=== PATIENT | male | born 1995 | race American Indian/Alaskan Native ===

== ENCOUNTER 2019-07-19 01:18 | Emergency (ER) | payer SELFPAY ==
[2019-07-19] MEDS ORDERED: IBUPROFEN 800 MG TAB ONE (01:49)
[2019-07-19] MEDS ORDERED: IBUPROFEN 800 MG TAB PO ONE (01:52)
--- NOTE | 2019-07-19 02:19 | XRay Report ---
RIGHT FOOT 3 VIEWS INDICATION: right foot pain. COMPARISON: No relevant prior imaging study available. FINDINGS: No acute fracture or dislocation is seen. No soft tissue swelling. No foreign bodies. IMPRESSION: 1. No acute findings. Signer Name: Shemar Reilly MD Signed: 07/19/2019 2:15 AM Workstation Name: [id number]
--- NOTE | 2019-07-19 04:11 | Emergency Department Report ---
ED General Adult HPI - General Chief complaint: Extremity Injury, Lower Stated complaint: RIGHT FOOT PAIN Time Seen by Provider: 07/19/19 04:06 Source: patient, EMS Mode of arrival: Wheelchair Limitations: No Limitations - History of Present Illness Initial comments: 24-year-old -[place] male complains of right foot pain after twisting his foot while walking x tonight. He rates his pain as a 10/10 in severity and states it is difficult for him to ambulate. He denies any swelling or bruising. -: Sudden Severity scale (0 -10): 10 Quality: aching, sharp Consistency: constant Improves with: immobilization Worsens with: movement, other (walking) Associated Symptoms: denies other symptoms - Related Data Previous Rx's Medication Instructions Recorded Last Taken Type Ibuprofen [Motrin 800 MG tab] 800 mg PO Q8HR PRN #21 tablet 07/19/19 Unknown Rx Allergies Allergy/AdvReac Type Severity Reaction Status Date / Time No Known Allergies Allergy Verified 07/19/19 01:34 ED Review of Systems ROS: Stated complaint: RIGHT FOOT PAIN Other details as noted in HPI Musculoskeletal: as per HPI. denies: joint swelling Skin: denies: rash, lesions ED Past Medical Hx - Past Medical History Previous Medical History?: No - Surgical History Past Surgical History?: No - Social History Smoking Status: Current Every Day Smoker Substance Use Type: Marijuana - Medications Home Medications: Home Medications Medication Instructions Recorded Confirmed Last Taken Type Ibuprofen [Motrin 800 MG tab] 800 mg PO Q8HR PRN #21 tablet 07/19/19 Unknown Rx ED Physical Exam - General Limitations: No Limitations General appearance: alert, in no apparent distress - Head Head exam: Present: atraumatic, normocephalic - Eye Eye exam: Present: normal appearance - Neck Neck exam: Present: full ROM - Respiratory Respiratory exam: Absent: respiratory distress - Cardiovascular Cardiovascular Exam: Present: regular rate - Expanded Lower Extremity Exam Right Foot/Toe exam: Present: full ROM, tenderness. Absent: swelling, abrasion, ecchymosis, deformity, erythema 1 - Tenderness to palpation - Neurological Exam Neurological exam: Present: alert, oriented X3 - Psychiatric Psychiatric exam: Present: normal affect, normal mood - Skin Skin exam: Present: warm, dry, intact, normal color. Absent: rash ED Course Vital Signs 07/19/19 01:36 Temperature 97.9 F Pulse Rate 68 Respiratory 18 Rate Blood Pressure 136/90 O2 Sat by Pulse 97 Oximetry ED Medical Decision Making - Radiology Data Radiology results: report reviewed RIGHT FOOT 3 VIEWS INDICATION: right foot pain. COMPARISON: No relevant prior imaging study available. FINDINGS: No acute fracture or dislocation is seen. No soft tissue swelling. No foreign bodies. IMPRESSION: 1. No acute findings. - Medical Decision Making 24-year-old -[place] male complains of right foot pain after twisting his foot while walking x tonight. X-ray is negative for fracture. Patient is nontoxic appearing and stable for discharge home. Crutches provided. Ankle wrapped in Jovany wrap. Patient to follow-up with operations systems specialist for further evaluation and treatment. Discussed strict return precautions in detail with patient who verbalizes understanding. Critical care attestation.: If time is entered above; I have spent that time in minutes in the direct care of this critically ill patient, excluding procedure time. ED Disposition Clinical Impression: Foot sprain Qualifiers: Encounter type: initial encounter Laterality: right Qualified Code(s): S93.601A - Unspecified sprain of right foot, initial encounter Disposition: TO HOME OR SELFCARE Is pt being admited?: No Condition: Stable Instructions: Foot Sprain (ED) Prescriptions: Ibuprofen [Motrin 800 MG tab] 800 mg PO Q8HR PRN #21 tablet PRN Reason: pain Referrals: GIA CHEATHAM MD [Staff Physician] - 3-5 Days
[2019-07-19 04:41] VITALS: BP 120/68
[2019-07-19] MEDS ORDERED: ACETAMINOPHEN 325 MG TAB PO ONE (04:55)
[2019-07-19] MEDS ORDERED: ACETAMINOPHEN 325 MG TAB ONE (04:57)
== END 2019-07-19 05:00 | disposition home or self-care (01) ==
LOC: ED 01:18
DX: S93.601A Unspecified sprain of right foot, initial encounter (principal); F17.200 Nicotine dependence, unspecified, uncomplicated; F12.10 Cannabis abuse, uncomplicated; Z79.899 Other long term (current) drug therapy; X50.1XXA Overexertion from prolonged static or awkward postures, initial encounter; Y93.89 Activity, other specified; Y92.89 Other specified places as the place of occurrence of the external cause; Y99.8 Other external cause status